=== PATIENT | female | born 1990 | race Caucasian/White ===

== ENCOUNTER 2017-03-19 20:02 | Emergency (ER) | payer MEDICAID ==
[~2017-03-19] VITALS: Ht 154.9 cm; Wt 90.7 kg
[2017-03-19 20:17] VITALS: BP_SYST 146
[2017-03-19 21:27] LABS: CALCIUM 9.2 mg/dL (8.4-11.0); CREATININE 1.12 mg/dL (0.55-1.30); POTASSIUM 3.6 mmol/L (3.5-5.1)
[2017-03-19 21:32] LABS: BASOPHILS # (AUTO) 0.1 K/uL (0.0-0.2); BASOPHILS % (AUTO) 0.6 % (0.0-2.0); EOSINOPHILS # (AUTO) 0.3 K/uL (0.0-0.4); EOSINOPHILS % (AUTO) 2.9 % (0.0-4.0); HEMATOCRIT 39.4 % (36-48); HEMOGLOBIN 13.3 g/dL (12.0-16.0); LYMPHOCYTES # (AUTO) 3.1 K/uL (1.0-5.5); LYMPHOCYTES % (AUTO) 31.3 % (20.5-51.5); MEAN CORPUSCULAR HEMOGLOBIN 29 pg (27-31); MEAN CORPUSCULAR HGB CONC 34 % (32-36); MEAN CORPUSCULAR VOLUME 85 fL (79.0-98.0); MONOCYTES # (AUTO) 0.5 K/uL (0.0-1.0); NEUTROPHILS # (AUTO) 5.8 K/uL (1.8-7.7); NEUTROPHILS % (AUTO) 60.2 % (40.0-70.0); PLATELET COUNT (AUTO) 256 K/uL (130-430); RED BLOOD CELL COUNT(AUTO) 4.64 MIL/uL (4.2-6.2); RED CELL DISTRIBUTION WIDTH 11.6 % (9.0-15.0); WHITE BLOOD COUNT (AUTO) 9.8 K/uL (4.8-10.8)
[2017-03-19 21:56] LABS: BILIRUBIN,URINE NEGATIVE (NEGATIVE); BLOOD, URINE NEGATIVE (NEGATIVE); CLARITY/URINE CLEAR (CLEAR); COLOR,URINE YELLOW (YELLOW); GLUCOSE,URINE NEGATIVE (NEGATIVE); KETONES,URINE NEGATIVE (NEGATIVE); LEUKOCYTE ESTERASE ,URINE NEGATIVE (NEGATIVE); NITRITE, URINE NEGATIVE (NEGATIVE); PROTEIN URINE NEGATIVE (NEGATIVE); UROBILINOGEN,URINE 0.2 (0.2-1.0)
[2017-03-19] MEDS ORDERED: NACL 0.9% 1,000 ML IV ONE ×2 (22:06→22:15)
[2017-03-19] MEDS ORDERED: KETOROLAC TROMETHAMINE 30 MG VIAL IVP ONE (22:15)
[2017-03-19 22:37] LABS: ALBUMIN 3.5 g/dL (3.4-4.8); BILIRUBIN,DIRECT 0.1 mg/dL (0.0-0.3); TOTAL BILIRUBIN 0.2 mg/dL (0.0-1.0); TOTAL PROTEIN, SERUM 7.5 g/dL (6.4-8.3)
[2017-03-20 00:30] VITALS: BP_SYST 138
== END 2017-03-20 00:30 | disposition home or self-care (01) ==
LOC: SED 20:02
DX: A09 Infectious gastroenteritis and colitis, unspecified (principal)
CPT/HCPCS: 36415; 74176; 76830; 76857; 80048; 80076; 81003; 81025; 82150; 83690; 85025; 96361; 96374; 99285; J1885; J7030

== ENCOUNTER 2017-05-22 20:31 | Emergency (ER) | payer MEDICAID, MEDICARE ==
[~2017-05-22] VITALS: Ht 152.4 cm; Wt 90.7 kg
[2017-05-22 20:37] VITALS: BP_SYST 190
[2017-05-22] MEDS ORDERED: KETOROLAC TROMETHAMINE 60 MG/2 ML VIAL IM ONE (21:00)
[2017-05-22] MEDS ORDERED: cloNIDine HCL 0.1 MG TABLET PO ONE (21:15)
[2017-05-22 21:48] VITALS: BP_SYST 143
== END 2017-05-22 21:48 | disposition home or self-care (01) ==
LOC: SED 20:31
DX: S39.012A Strain of muscle, fascia and tendon of lower back, initial encounter (principal); X58.XXXA Exposure to other specified factors, initial encounter; Y93.89 Activity, other specified; Y92.89 Other specified places as the place of occurrence of the external cause; Y99.8 Other external cause status
CPT/HCPCS: 96372; 99283; J1885

== ENCOUNTER 2018-07-25 10:54 | Emergency (ER) | payer MEDICAID, MEDICARE ==
[~2018-07-25] VITALS: Ht 154.9 cm; Wt 94.3 kg
[2018-07-25 11:08] VITALS: BP_SYST 157
[2018-07-25] MEDS ORDERED: LORazepam 1 MG TABLET PO ONE (11:30)
[2018-07-25] MEDS ORDERED: cloNIDine HCL 0.1 MG TABLET PO ONE (11:30)
[2018-07-25 11:59] VITALS: BP_SYST 133
== END 2018-07-25 11:59 | disposition home or self-care (01) ==
LOC: SED 10:54
DX: F41.9 Anxiety disorder, unspecified (principal)
CPT/HCPCS: 81025; 99283

== ENCOUNTER 2023-08-15 23:42 | Emergency (ER) | payer MEDICAID ==
[~2023-08-15] VITALS: Ht 154.9 cm; Wt 99.8 kg
[2023-08-15 23:53] VITALS: BP_SYST 184; PULSE 91; RESP 16; TEMP 97.7; O2SAT 99
[2023-08-16] MEDS ORDERED: PANTOPRAZOLE SODIUM 40 MG/VIAL (PROTONIX) IVP ONE
[2023-08-16] MEDS ORDERED: LORazepam 2 MG/ML VIAL IVP ONE (00:15)
[2023-08-16 00:48] LABS: INFLUENZA TYPE A Negative (NEGATIVE); INFLUENZA TYPE B NEGATIVE (NEGATIVE)
[2023-08-16 00:55] LABS: BASOPHILS # (AUTO) 0.1 K/uL (0.0-0.2); BASOPHILS % (AUTO) 0.6 % (0.0-2.0); EOSINOPHILS # (AUTO) 0.3 K/uL (0.0-0.4); EOSINOPHILS % (AUTO) 2.7 % (0.0-4.0); HEMATOCRIT 39.3 % (36-48); HEMOGLOBIN 13.7 g/dL (12.0-16.0); LYMPHOCYTES # (AUTO) 2.9 K/uL (1.0-5.5); MEAN CORPUSCULAR HEMOGLOBIN 30 pg (27-31); MEAN CORPUSCULAR HGB CONC 35 % (32-36); MEAN CORPUSCULAR VOLUME 86 fL (79.0-98.0); MONOCYTES # (AUTO) 0.5 K/uL (0.0-1.0); MONOCYTES % (AUTO) 5.1 % (1.7-9.3); NEUTROPHILS # (AUTO) 6.8 K/uL (1.8-7.7); NEUTROPHILS % (AUTO) 64.6 % (40.0-70.0); PLATELET COUNT (AUTO) 276 K/uL (130-430); RED BLOOD CELL COUNT(AUTO) 4.58 MIL/uL (4.2-6.2); WHITE BLOOD COUNT (AUTO) 10.6 K/uL (4.8-10.8)
[2023-08-16 00:56] LABS: BILIRUBIN,URINE NEGATIVE (NEGATIVE); BLOOD, URINE NEGATIVE (NEGATIVE); CLARITY/URINE CLEAR (CLEAR); COLOR,URINE YELLOW (YELLOW); GLUCOSE,URINE NEGATIVE (NEGATIVE); KETONES,URINE NEGATIVE (NEGATIVE); LEUKOCYTE ESTERASE ,URINE NEGATIVE (NEGATIVE); NITRITE, URINE NEGATIVE (NEGATIVE); PROTEIN URINE NEGATIVE (NEGATIVE); UROBILINOGEN,URINE 0.2 (0.2-1.0)
[2023-08-16 01:03] LABS: ALANINE AMINOTRANSFERASE 30 U/L (12-78); ALBUMIN 3.3 g/dL (3.4-4.8); ANION GAP 11 (5-15); ASPARTATE AMINOTRANSFERASE 13 U/L (10-37); BILIRUBIN,DIRECT 0.1 mg/dL (0.0-0.3); CALCIUM 8.2 mg/dL (8.4-11.0); CARBON DIOXIDE 27 mmol/L (23-29); CHLORIDE 103 mmol/L (98-107); CREATININE 0.81 mg/dL (0.55-1.30); GFR AFRICAN AMERICAN 104 mL/min (>90); GLUCOSE 111 mg/dL (74-106); LIPASE 19 U/L (16-77); POTASSIUM 3.6 mmol/L (3.5-5.1); SODIUM SERUM 141 mmol/L (136-145); TOTAL BILIRUBIN 0.2 mg/dL (0.0-1.0); TOTAL PROTEIN, SERUM 7.7 g/dL (6.4-8.3); UREA NITROGEN, BLOOD 13 mg/dL (8-21)
[2023-08-16 01:04] LABS: GFR NON AFRICAN-AMERICAN 86 mL/min (>90)
[2023-08-16 01:19] LABS: BARBITURATE, URINE NEGATIVE (NEG <=200); BENZODIAZEPINE, URINE NEGATIVE (NEG <=150); CANNABINOID, URINE NEGATIVE (NEG <=50); COCAINE, URINE NEGATIVE (NEG <=150); METHAMPHETAMINES SCREEN,URINE NEGATIVE (NEG <=500); OPIATE, URINE NEGATIVE (NEG <=100); PHENCYCLIDINE SCREEN,URINE NEGATIVE (NEG <=25); UR TRICYCLIC ANTIDEPRESSANTS NEGATIVE (NEG <=300); URINE AMPHETAMINE NEGATIVE (NEG <=500); URINE METHADONE NEGATIVE (NEG <=200); URINE OXYCODONE SCREEN NEGATIVE (NEG <=100)
[2023-08-16] MEDS ORDERED: ALPR1TAB2 PO (02:29)
[2023-08-16] MEDS ORDERED: OMEP40CA20 PO (02:32)
[2023-08-16 03:22] VITALS: BP_SYST 142; PULSE 80; RESP 22; TEMP 98.7; O2SAT 98
== END 2023-08-16 03:22 | disposition home or self-care (01) ==
LOC: SED 23:42
DX: R06.00 Dyspnea, unspecified (principal); R00.2 Palpitations; F41.9 Anxiety disorder, unspecified; R06.02 Shortness of breath; R10.10 Upper abdominal pain, unspecified; I10 Essential (primary) hypertension; Z79.899 Other long term (current) drug therapy; Z20.822 Contact with and (suspected) exposure to COVID-19
CPT/HCPCS: 99285; 87426; 80307; 80076; 80048; 83880; 83690; 85025; 85379; 84484; 36415; 81025; 87804 ×2; 81001; 81003; 74176; 93970; 96374; 71045; 96375; 76376; J2060; C9113

== ENCOUNTER 2023-11-27 12:19 | Emergency (ER) | payer MEDICAID ==
[~2023-11-27] VITALS: Ht 154.9 cm; Wt 104.3 kg
[~2023-11-27 12:19] MED LIST: ALPR1TAB2 PO; OMEP40CA20 PO
[2023-11-27 12:25] VITALS: BP_SYST 134; PULSE 78; RESP 18; TEMP 97.1; O2SAT 100
[2023-11-27 13:43] LABS: BASOPHILS # (AUTO) 0.1 K/uL (0.0-0.2); EOSINOPHILS # (AUTO) 0.2 K/uL (0.0-0.4); EOSINOPHILS % (AUTO) 1.9 % (0.0-4.0); HEMATOCRIT 38.7 % (36-48); HEMOGLOBIN 13.3 g/dL (12.0-16.0); LYMPHOCYTES # (AUTO) 2.3 K/uL (1.0-5.5); LYMPHOCYTES % (AUTO) 25.9 % (20.5-51.5); MEAN CORPUSCULAR HEMOGLOBIN 29 pg (27-31); MEAN CORPUSCULAR HGB CONC 34 % (32-36); MEAN CORPUSCULAR VOLUME 83 fL (79.0-98.0); MONOCYTES # (AUTO) 0.4 K/uL (0.0-1.0); NEUTROPHILS # (AUTO) 6.1 K/uL (1.8-7.7); NEUTROPHILS % (AUTO) 67.2 % (40.0-70.0); PLATELET COUNT (AUTO) 288 K/uL (130-430); RED BLOOD CELL COUNT(AUTO) 4.65 MIL/uL (4.2-6.2); RED CELL DISTRIBUTION WIDTH 13.6 % (9.0-15.0)
[2023-11-27 13:52] LABS: CREATININE 0.75 mg/dL (0.55-1.30)
[2023-11-27 14:33] LABS: BILIRUBIN,URINE NEGATIVE (NEGATIVE); BLOOD, URINE NEGATIVE (NEGATIVE); CLARITY/URINE CLEAR (CLEAR); COLOR,URINE YELLOW (YELLOW); GLUCOSE,URINE NEGATIVE (NEGATIVE); KETONES,URINE NEGATIVE (NEGATIVE); LEUKOCYTE ESTERASE ,URINE NEGATIVE (NEGATIVE); NITRITE, URINE NEGATIVE (NEGATIVE); PH,URINE 6.5 (5.0-8.0); PROTEIN URINE NEGATIVE (NEGATIVE); UROBILINOGEN,URINE 0.2 (0.2-1.0)
[2023-11-27] MEDS: PHENAZOPYRIDINE HCL 100 MG TABLET PO ONE (16:13)
[2023-11-27] MEDS ORDERED: IBUP-1971 PO (16:29)
[2023-11-27] MEDS ORDERED: ONDA-8 TL (16:29)
[2023-11-27 16:36] VITALS: BP_SYST 134; PULSE 78; RESP 18; TEMP 97.1; O2SAT 100
== END 2023-11-27 16:36 | disposition home or self-care (01) ==
LOC: SED 12:19
DX: N94.0 Mittelschmerz (principal); R10.2 Pelvic and perineal pain; I10 Essential (primary) hypertension; Z79.899 Other long term (current) drug therapy
CPT/HCPCS: 36415; 80048; 81001; 81003; 81025; 85025; 99284